=== PATIENT | male | born 2000 | race Caucasian/White ===

== ENCOUNTER 2019-07-26 12:43 | Inpatient (IN) | payer MEDICAID, OTHER ==
[~2019-07-26] VITALS: Ht 175.3 cm; Wt 64.7 kg
--- NOTE | 2019-07-26 13:43 | NUR ---
PT PLACED ON BP CUFF, PULSE OX. IV PLACED, LABS DRAWN. AWAITING CT. CALL LIGHT WITHIN REACH.
[2019-07-26 13:47] LABS: MEAN CORPUSCULAR HEMOGLOBIN 30.9 pg (27.5-34.5); MEAN CORPUSCULAR HGB CONC 33.3 g/dL (33.2-36.2); MEAN CORPUSCULAR VOLUME 92.8 fL (81-97); MEAN PLATELET VOLUME 7.3 fL (7.4-10.4); PLATELET COUNT 238 x10^3/uL (130-400); RED BLOOD COUNT 5.37 x10^6/uL (4.38-5.82); RED CELL DISTRIBUTION WIDTH 14.4 % (9.4-14.8)
[2019-07-26 13:56] LABS: ANION GAP 10 mmol/L (5-15); CALCIUM 10.6 mg/dL (8.5-10.1); CHLORIDE 90 mmol/L (98-107); CREATININE 0.91 mg/dL (0.7-1.3)
[2019-07-26] MEDS ORDERED: KETOROLAC 30 MG/1 ML ONE (14:00)
[2019-07-26] MEDS ORDERED: KETOROLAC 30 MG/1 ML IM ONE (14:00)
[2019-07-26] MEDS ORDERED: CYCLOBENZAPRINE 10 MG TABLET PO ONE (14:00)
[2019-07-26] MEDS ORDERED: CYCLOBENZAPRINE 10 MG TABLET ONE (14:00)
--- NOTE | 2019-07-26 14:10 | NUR ---
PT GIVEN MEDS PER ERP ORDER FOR 10/10 NECK PAIN. CALL LIGHT WITHIN REACH.
[2019-07-26] MEDS ORDERED: SODIUM CHLORIDE 0.9% 1,000ML IVBOLUS ONE (14:30)
[2019-07-26] MEDS ORDERED: KETOROLAC 30 MG/1 ML IVPush ONE (14:30)
--- NOTE | 2019-07-26 14:35 | NUR ---
TASK RN: PT W/ HYPONATREMIA; SZ PRECAUTIONS IN PLACE.
--- NOTE | 2019-07-26 14:45 | NUR ---
NA 124-NS IVF BOLUS INFUSING, SEIZURE PADS IN PLACE, AND PT PLACED ON HEART MONITOR. RECTAL TEMP OBTAINED 101.4. PT AND FATHER UPDATED ON POC. CALL LIGHT WITHIN REACH.
[2019-07-26 14:52] LABS: MD YES
[2019-07-26 14:55] LABS: <PLATELET ESTIMATE> ADEQUATE; BANDS%(MANUAL) 5 % (0-7); LYMPH#(MANUAL) 0.36 x10^3/uL (1-3.4); LYMPHS% (MANUAL) 2 % (22-44); MONOS#(MANUAL) 1.97 x10^3/uL (0.3-2.7); MONOS% (MANUAL) 11 % (2-9); SEG#(MANUAL) 14.68 x10^3/uL (1.8-6.8); SEGS% (MANUAL) 82 % (42-75)
[2019-07-26 14:56] LABS: <PLT MORPHOLOGY> NORMAL PLT MORPH
[2019-07-26] MEDS ORDERED: ACETAMINOPHEN 500 MG TABLET PO ONE (15:00)
[2019-07-26] MEDS ORDERED: AMPICILLIN/SULBACTAM 3 GM in SODIUM CHLORIDE 0.9% 100 ML IV ONE (15:00)
[2019-07-26 15:12] LABS: <RBC MORPHOLOGY> NORMAL
[2019-07-26] MEDS ORDERED: ACETAMINOPHEN 500 MG TABLET ONE (15:19)
--- NOTE | 2019-07-26 15:26 | NUR ---
REPORT FROM CHELSIE VINSON. PT UP TO SIDE OF BED FOR URINAL USE. NAD NOTED AT THIS TIME. RESPIRATIONS EVEN AND UNLABORED ON RA. SIDE RAIL UP, CALL LIGHT IN REACH. FATHER AT BEDSIDE. SZ PAD REMAIN IN PLACE.
[2019-07-26] MEDS ORDERED: LIDOCAINE-MPF 1%, 5ML ONE (16:40)
--- NOTE | 2019-07-26 16:43 | NUR ---
LP UNSUCCESSFUL IN ED. PT EDUCATED ON NEED FOR IMAGING PLACEMENT. NO QUESTIONS AT THIS TIME. RESPIRATIONS EVEN AND UNLABORED ON RA, POSITION OF COMFORT ATTAINED. PT WATCHING TELEVISION.
--- NOTE | 2019-07-26 16:53 | NUR ---
PT TAKEN TO IMAGING FOR LP. NAD NOTED AT THIS TIME, DENIES PAIN.
[2019-07-26 17:04] LABS: MICROSCOPIC NOT IND
[2019-07-26 17:11] LABS: CULTURE INDICATED? NO
--- NOTE | 2019-07-26 17:49 | NUR ---
pt back from radiology. Laying flat on back, NAD noted at this time. Respirations even and unlabored on RA. Side rails up, call light in reach. Pt denies pain at this time. Curtain pulled for privacy.
[2019-07-26 18:38] LABS: GLUCOSE, CSF 66 mg/dL (40-80); TOTAL PROTEIN,CSF 84 mg/dL (15-45)
--- NOTE | 2019-07-26 19:02 | NUR ---
pt laying back in bed, resting with eyes closed. NAD noted at this time. Pt denies pain. Side rails up, call light in reach. Family at bedside.
[2019-07-26] MEDS ORDERED: CEFTRIAXONE PMX 1GM/50ML 50 ML IV ONE (19:30)
--- NOTE | 2019-07-26 19:32 | NUR ---
critical from lab reported to dr gay.
--- NOTE | 2019-07-26 19:52 | NUR ---
Hospitalist at bedside. NAD noted in pt at this time. Denies pain at this time. [employer] at bedside from coffee cart.
[2019-07-26] MEDS ORDERED: SODIUM CHLORIDE FLUSH 10ML SYR IVF PRN (20:00)
[2019-07-26] MEDS ORDERED: POLYETHYLENE GLYCOL 17 GM PACKET PO PRN (20:00)
[2019-07-26] MEDS ORDERED: BISACODYL 10 MG SUPP PR PRN (20:00)
--- NOTE | 2019-07-26 20:10 | NUR ---
Pt laying back in bed watching television. NAD noted at this time. Respirations even and unlabored on RA. Side rails up, call light in reach.
[2019-07-26] MEDS ORDERED: VANCOMYCIN PER PHARMACY MC PRN (20:30)
[2019-07-26 20:45] VITALS: BP 116/76
[2019-07-26] MEDS ORDERED: PHARMACOKINETIC MONITORING MC PRN (21:00)
[2019-07-26] MEDS ORDERED: PHARMACOKINETIC CONSULTATION MC ONE (21:00)
[2019-07-26] MEDS ORDERED: VANCOMYCIN 1,300 MG in SODIUM CHLORIDE 0.9% 250 ML IV SCH (21:30)
[2019-07-26] MEDS: SODIUM CHLORIDE 0.9% 1,000 ML IV SCH (22:04)
[2019-07-26] MEDS: ACYCLOVIR 1,000 MG in SODIUM CHLORIDE 0.9% 250 ML IV SCH (22:05)
[2019-07-26] MEDS: CEFTRIAXONE PMX 2GM/50ML 50 ML IV SCH (23:50)
[2019-07-27 01:23] VITALS: BP 112/65
[2019-07-27] MEDS: METHOCARBAMOL 500 MG TABLET PO PRN ×4 (01:39→21:08)
[2019-07-27] MEDS: ACETAMINOPHEN 325 MG TABLET PO PRN ×2 (01:39→19:34)
[2019-07-27 05:53] LABS: ALBUMIN 2.4 g/dL (3.4-5.0); ANION GAP 7 mmol/L (5-15); CALCIUM 9.3 mg/dL (8.5-10.1); CHLORIDE 100 mmol/L (98-107)
[2019-07-27 05:54] LABS: MEAN CORPUSCULAR HEMOGLOBIN 31.3 pg (27.5-34.5); MEAN CORPUSCULAR HGB CONC 33.7 g/dL (33.2-36.2); MEAN PLATELET VOLUME 7.7 fL (7.4-10.4); PLATELET COUNT 174 x10^3/uL (130-400); RED BLOOD COUNT 4.55 x10^6/uL (4.38-5.82); RED CELL DISTRIBUTION WIDTH 14.6 % (9.4-14.8)
[2019-07-27 06:00] LABS: ALANINE AMINOTRANSFERASE 117 U/L (12-78); ALKALINE PHOSPHATASE 110 U/L (45-117); BILIRUBIN,TOTAL 0.9 mg/dL (0.2-1.0); CREATININE 0.51 mg/dL (0.7-1.3); TOTAL PROTEIN 6.1 g/dL (6.4-8.2)
[2019-07-27] MEDS: ACYCLOVIR 1,000 MG in SODIUM CHLORIDE 0.9% 250 ML IV SCH (06:02)
[2019-07-27] MEDS: ONDANSETRON ODT 4 MG PO PRN ×2 (06:16→09:48)
[2019-07-27 06:17] LABS: BASOPHILS # (AUTO) 0.09 x10^3/uL (0-0.1); BASOPHILS % (AUTO) 1 % (0-1); EOSINOPHILS # (AUTO) 0.02 x10^3/uL (0-0.4); EOSINOPHILS % (AUTO) 0 % (1-7); LYMPHOCYTES % (AUTO) 4 % (22-44); MD SCAN; MONOCYTES # (AUTO) 1.95 x10^3/uL (0.2-0.8); MONOCYTES % (AUTO) 11 % (2-9); NEUTROPHILS # (AUTO) 14.96 x10^3/uL (1.8-6.8); NEUTROPHILS % (AUTO) 85 % (42-75)
[2019-07-27 08:11] VITALS: BP 109/64
[2019-07-27] MEDS: SODIUM CHLORIDE 0.9% 1,000 ML IV SCH ×2 (08:49→17:12)
[2019-07-27] MEDS: SENNA/DOCUSATE TABLET PO SCH (08:51)
[2019-07-27] MEDS: CEFTRIAXONE PMX 2GM/50ML 50 ML IV SCH (11:26)
[2019-07-27] MEDS: VANCOMYCIN PMX 1GM/200ML 200 ML IVPB SCH ×2 (12:27→21:47)
[2019-07-27 13:49] LABS: SODIUM,URINE RANDOM 20 mmol/L
[2019-07-27 15:17] LABS: OSMOLALITY,URINE 352 mOsm/kg (500-850)
[2019-07-27 15:23] VITALS: BP 126/81
[2019-07-27] MEDS: ACYCLOVIR IV SCH (19:56)
[2019-07-27] MEDS: SODIUM CHLORIDE 0.9% IV SCH (19:56)
[2019-07-27 21:15] VITALS: BP 125/70
[2019-07-28] MEDS: CEFTRIAXONE PMX 2GM/50ML 50 ML IV SCH ×3 (00:09→23:37)
[2019-07-28 03:01] VITALS: BP 113/73
[2019-07-28] MEDS: METHOCARBAMOL 500 MG TABLET PO PRN (03:01)
[2019-07-28] MEDS: SODIUM CHLORIDE 0.9% IV SCH ×3 (03:57→19:57)
[2019-07-28] MEDS: ACYCLOVIR IV SCH ×3 (03:57→19:57)
[2019-07-28] MEDS: VANCOMYCIN PMX 1GM/200ML 200 ML IVPB SCH ×4 (04:52→22:05)
[2019-07-28 06:01] LABS: MEAN CORPUSCULAR HEMOGLOBIN 31.5 pg (27.5-34.5); MEAN CORPUSCULAR HGB CONC 33.3 g/dL (33.2-36.2); MEAN CORPUSCULAR VOLUME 94.5 fL (81-97); MEAN PLATELET VOLUME 8.5 fL (7.4-10.4); PLATELET COUNT 167 x10^3/uL (130-400); RED BLOOD COUNT 4.75 x10^6/uL (4.38-5.82); RED CELL DISTRIBUTION WIDTH 14.1 % (9.4-14.8)
[2019-07-28 06:27] LABS: ALBUMIN 1.9 g/dL (3.4-5.0); ANION GAP 6 mmol/L (5-15); CALCIUM 8.7 mg/dL (8.5-10.1); CHLORIDE 91 mmol/L (98-107)
[2019-07-28 06:29] LABS: MD YES
[2019-07-28 06:31] LABS: ALANINE AMINOTRANSFERASE 69 U/L (12-78); ALKALINE PHOSPHATASE 108 U/L (45-117); BILIRUBIN,TOTAL 0.6 mg/dL (0.2-1.0); CREATININE 0.84 mg/dL (0.7-1.3)
[2019-07-28 06:32] LABS: <RBC MORPHOLOGY> NORMAL; BAND#(MANUAL) 2.41 x10^3/uL; BANDS%(MANUAL) 13 % (0-7); LYMPH#(MANUAL) 1.67 x10^3/uL (1-3.4); LYMPHS% (MANUAL) 9 % (22-44); METAMYELOCYTES# (MANUAL) 0.19 x10^3/uL (0-0); METAMYELOCYTES% (MANUAL) 1 % (0-1); MONOS#(MANUAL) 1.67 x10^3/uL (0.3-2.7); MONOS% (MANUAL) 9 % (2-9); SEG#(MANUAL) 12.58 x10^3/uL (1.8-6.8); SEGS% (MANUAL) 68 % (42-75)
[2019-07-28 06:33] LABS: TOXIC GRAN 1+
[2019-07-28 06:34] LABS: <PLATELET ESTIMATE> ADEQUATE; <PLT MORPHOLOGY> NORMAL PLT MORPH
[2019-07-28 06:38] VITALS: BP 119/70
[2019-07-28] MEDS: SENNA/DOCUSATE TABLET PO SCH (08:09)
[2019-07-28] MEDS: POTASSIUM CHLORIDE 20 MEQ TAB.ER.PRT PO SCH ×2 (09:38→16:39)
[2019-07-28] MEDS: HYDROcodone/APAP 5/325 TABLET PO PRN ×2 (09:39→16:39)
[2019-07-28 14:00] VITALS: BP 117/69
[2019-07-28 15:24] LABS: ANION GAP 7 mmol/L (5-15); CALCIUM 8.8 mg/dL (8.5-10.1); CHLORIDE 92 mmol/L (98-107); CREATININE 0.88 mg/dL (0.7-1.3)
[2019-07-28 18:48] VITALS: BP 122/76
[2019-07-28 22:47] LABS: SODIUM,URINE RANDOM 64 mmol/L
[2019-07-28 23:24] LABS: OSMOLALITY,URINE 277 mOsm/kg (500-850)
[2019-07-28 23:55] LABS: ANION GAP 7 mmol/L (5-15); CALCIUM 8.3 mg/dL (8.5-10.1); CHLORIDE 94 mmol/L (98-107); CREATININE 0.77 mg/dL (0.7-1.3)
[2019-07-29 02:09] VITALS: BP 134/70
[2019-07-29] MEDS: ACYCLOVIR IV SCH ×2 (04:14→12:17)
[2019-07-29] MEDS: SODIUM CHLORIDE 0.9% IV SCH ×2 (04:14→12:17)
[2019-07-29] MEDS: HYDROcodone/APAP 5/325 TABLET PO PRN ×3 (04:22→23:20)
[2019-07-29 04:30] VITALS: BP 136/82
[2019-07-29 05:45] LABS: ALBUMIN 2.1 g/dL (3.4-5.0); ANION GAP 7 mmol/L (5-15); CALCIUM 8.9 mg/dL (8.5-10.1); CHLORIDE 92 mmol/L (98-107)
[2019-07-29 05:59] LABS: MEAN CORPUSCULAR HEMOGLOBIN 31.2 pg (27.5-34.5); MEAN CORPUSCULAR HGB CONC 33.6 g/dL (33.2-36.2); MEAN PLATELET VOLUME 8.1 fL (7.4-10.4); PLATELET COUNT 215 x10^3/uL (130-400); RED BLOOD COUNT 4.77 x10^6/uL (4.38-5.82); RED CELL DISTRIBUTION WIDTH 14.1 % (9.4-14.8)
[2019-07-29] MEDS: VANCOMYCIN PMX 1GM/200ML 200 ML IVPB SCH ×2 (06:05→17:41)
[2019-07-29 06:22] LABS: MD YES
[2019-07-29 06:25] LABS: <PLATELET ESTIMATE> ADEQUATE; <PLT MORPHOLOGY> NORMAL PLT MORPH; <RBC MORPHOLOGY> NORMAL; BAND#(MANUAL) 0.37 x10^3/uL; BANDS%(MANUAL) 2 % (0-7); EOS#(MANUAL) 0.18 x10^3/uL (0.0-0.4); EOS% (MANUAL) 1 % (1-7); LYMPH#(MANUAL) 1.47 x10^3/uL (1-3.4); LYMPHS% (MANUAL) 8 % (22-44); METAMYELOCYTES# (MANUAL) 0.18 x10^3/uL (0-0); METAMYELOCYTES% (MANUAL) 1 % (0-1); MONOS#(MANUAL) 1.29 x10^3/uL (0.3-2.7); MONOS% (MANUAL) 7 % (2-9); SEGS% (MANUAL) 81 % (42-75)
[2019-07-29 08:25] VITALS: BP 130/72
[2019-07-29] MEDS: SENNA/DOCUSATE TABLET PO SCH (09:00)
[2019-07-29] MEDS ORDERED: POTASSIUM CHLORIDE 20 MEQ TAB.ER.PRT PO ONE (10:30)
[2019-07-29] MEDS: CEFTRIAXONE PMX 2GM/50ML 50 ML IV SCH ×2 (10:55→23:40)
[2019-07-29] MEDS ORDERED: GADOTERATE 7.5 MMOL/15 ML SYR ONE ×2 (11:23→19:33)
[2019-07-29] MEDS ORDERED: GADOTERATE 7.5 MMOL/15 ML VIAL ONE (13:26)
[2019-07-29] MEDS ORDERED: HEPARIN 5,000 UNITS/ML, 1ML IV ONE (14:30)
[2019-07-29] MEDS: HEPARIN 25,000 UNITS/500ML PMX 500 ML IV PRN (15:54)
[2019-07-29] MEDS: HEPARIN 5,000 UNITS/ML, 1ML IV PRN (23:19)
[2019-07-30] MEDS: HYDROcodone/APAP 5/325 TABLET PO PRN (04:17)
[2019-07-30] MEDS: HEPARIN 5,000 UNITS/ML, 1ML IV PRN (06:03)
[2019-07-30 07:43] LABS: ANION GAP 6 mmol/L (5-15); CALCIUM 8.6 mg/dL (8.5-10.1); CHLORIDE 99 mmol/L (98-107); CREATININE 0.73 mg/dL (0.7-1.3)
[2019-07-30] MEDS: SENNA/DOCUSATE TABLET PO SCH (10:07)
[2019-07-30] MEDS ORDERED: PROPOFOL 10 MG/ML, 20ML ONE (10:20)
[2019-07-30] MEDS ORDERED: SUCCINYLCHOLINE 20 MG/ML, 10ML ONE (10:20)
[2019-07-30] MEDS ORDERED: ROCURONIUM 10MG/ML,5ML ONE (10:20)
[2019-07-30] MEDS ORDERED: ONDANSETRON 2MG/ML, 2ML ONE (10:20)
[2019-07-30] MEDS: CEFTRIAXONE PMX 2GM/50ML 50 ML IV SCH ×2 (12:22→23:04)
[2019-07-30] MEDS ORDERED: MIDAZOLAM 1 MG/ML, 2ML ONE ×2 (16:45→17:34)
[2019-07-30] MEDS ORDERED: FENTANYL PF 100 MCG/2ML ONE ×2 (16:45→20:42)
[2019-07-30] MEDS ORDERED: BACITRACIN OINT 500U/GM, 15 GM ONE (17:31)
[2019-07-30] MEDS ORDERED: FLUORESCEIN SODIUM 500 MG/5 ML ONE (17:31)
[2019-07-30] MEDS ORDERED: LIDOCAINE 1%-EPI 1:100K, 20ML ONE (17:31)
[2019-07-30] MEDS ORDERED: OXYMETAZOLINE NASAL SPRAY 0.05%, 15ML ONE (17:31)
[2019-07-30] MEDS ORDERED: FENTANYL PF 250 MCG/5ML ONE (17:34)
[2019-07-30] MEDS ORDERED: EPINEPHRINE TOPICAL SOLN 1 MG/ML, 30ML ONE (17:46)
[2019-07-30] MEDS ORDERED: SUGAMMADEX 200 MG/2 ML IVPush ONE (20:04)
[2019-07-30] MEDS ORDERED: hydrALAzine 20 MG/ML, 1ML IV PRN (20:30)
[2019-07-30] MEDS ORDERED: PROMETHAZINE 25 MG/ML, 1ML IV PRN (20:30)
[2019-07-30] MEDS ORDERED: MIDAZOLAM 1 MG/ML, 2ML IV PRN (20:30)
[2019-07-30] MEDS ORDERED: DIAZEPAM 5 MG/ML, 2ML IVPush PRN (20:30)
[2019-07-30] MEDS ORDERED: LABETALOL 5MG/ML, 20ML IV PRN (20:30)
[2019-07-30] MEDS ORDERED: ONDANSETRON ODT 8 MG PO PRN (20:30)
[2019-07-30] MEDS ORDERED: EPHEDRINE 50 MG/ML, 1ML IVPush PRN (20:30)
[2019-07-30] MEDS ORDERED: ONDANSETRON 2MG/ML, 2ML IV PRN (20:30)
[2019-07-30] MEDS ORDERED: OXYMETAZOLINE NASAL SPRAY 0.05%,30ML NAS SCH (20:30)
[2019-07-30] MEDS ORDERED: HYDROmorphone 2 MG/ML, 1ML IVPush PRN (20:30)
[2019-07-30] MEDS ORDERED: HALOPERIDOL 5 MG/ML IV PRN (20:30)
[2019-07-30] MEDS ORDERED: ACETAMINOPHEN 325 MG TABLET PO PRN (20:30)
[2019-07-30] MEDS ORDERED: PROMETHAZINE 12.5 MG SUPP PR PRN (20:30)
[2019-07-30] MEDS ORDERED: OXYcodone 5 MG/5 ML ORAL.SOL UDC PO PRN (20:30)
[2019-07-30] MEDS ORDERED: ALBUTEROL SULFATE 2.5 MG/3 ML NPPB PRN (20:30)
[2019-07-30] MEDS ORDERED: MEPERIDINE/PF 25MG/ML,1ML IVPush PRN (20:30)
[2019-07-30] MEDS ORDERED: OXYcodone 5 MG/5 ML ORAL.SOL UDC ONE (20:42)
[2019-07-30] MEDS: FENTANYL PF 100 MCG/2ML IV PRN ×3 (20:45→20:59)
[2019-07-30] MEDS: SODIUM CHLORIDE NASAL SPRAY 45ML BOTTLE NAS SCH (21:00)
[2019-07-31] MEDS: HYDROcodone/APAP 5/325 TABLET PO PRN ×4 (02:10→22:47)
[2019-07-31 03:42] LABS: MEAN CORPUSCULAR HEMOGLOBIN 30.7 pg (27.5-34.5); MEAN CORPUSCULAR HGB CONC 33.3 g/dL (33.2-36.2); MEAN CORPUSCULAR VOLUME 92.1 fL (81-97); MEAN PLATELET VOLUME 6.5 fL (7.4-10.4); PLATELET COUNT 282 x10^3/uL (130-400); RED BLOOD COUNT 4.16 x10^6/uL (4.38-5.82); RED CELL DISTRIBUTION WIDTH 14.2 % (9.4-14.8)
[2019-07-31 03:48] LABS: MD YES
[2019-07-31 03:53] LABS: ANION GAP 7 mmol/L (5-15); CALCIUM 8.5 mg/dL (8.5-10.1); CHLORIDE 97 mmol/L (98-107); CREATININE 0.89 mg/dL (0.7-1.3)
[2019-07-31 03:57] LABS: <PLATELET ESTIMATE> ADEQUATE; <PLT MORPHOLOGY> NORMAL PLT MORPH; BANDS%(MANUAL) 3 % (0-7); LYMPH#(MANUAL) 1.33 x10^3/uL (1-3.4); LYMPHS% (MANUAL) 10 % (22-44); METAMYELOCYTES# (MANUAL) 0.27 x10^3/uL (0-0); METAMYELOCYTES% (MANUAL) 2 % (0-1); MONOS% (MANUAL) 12 % (2-9); MYELOCYTES# (MANUAL) 0.27 x10^3/uL (0-0); MYELOCYTES% (MANUAL) 2 % (0-0); POLYCHROMASIA 1+; SEG#(MANUAL) 9.44 x10^3/uL (1.8-6.8); SEGS% (MANUAL) 71 % (42-75)
[2019-07-31 03:58] LABS: TOXIC GRAN 1+
[2019-07-31] MEDS: HEPARIN 5,000 UNITS/ML, 1ML IV PRN ×3 (04:07→21:17)
[2019-07-31] MEDS: SODIUM CHLORIDE NASAL SPRAY 45ML BOTTLE NAS SCH ×4 (06:00→21:17)
[2019-07-31] MEDS: SENNA/DOCUSATE TABLET PO SCH (09:00)
[2019-07-31] MEDS ORDERED: OXYMETAZOLINE NASAL SPRAY 0.05%,30ML NAS PRN (10:00)
[2019-07-31] MEDS ORDERED: metroNIDAZOLE 500 MG TABLET PO SCH (13:00)
[2019-07-31] MEDS: CEFTRIAXONE PMX 2GM/50ML 50 ML IV SCH (13:01)
[2019-07-31] MEDS: HEPARIN 25,000 UNITS/500ML PMX 500 ML IV PRN (13:30)
[2019-07-31] MEDS: metroNIDAZOLE 500 MG TABLET PO SCH ×2 (14:50→21:17)
[2019-07-31 15:42] LABS: CHLORIDE,URINE RANDOM 42 mmol/L; POTASSIUM,URINE RANDOM 7 mmol/L; SODIUM,URINE RANDOM 54 mmol/L
[2019-07-31 16:31] LABS: OSMOLALITY,URINE 156 mOsm/kg (500-850)
[2019-08-01] MEDS: CEFTRIAXONE PMX 2GM/50ML 50 ML IV SCH ×2 (00:25→13:19)
[2019-08-01] MEDS: HYDROcodone/APAP 5/325 TABLET PO PRN ×5 (02:34→22:54)
[2019-08-01 03:27] LABS: MEAN CORPUSCULAR HEMOGLOBIN 31.2 pg (27.5-34.5); MEAN CORPUSCULAR HGB CONC 33.1 g/dL (33.2-36.2); MEAN CORPUSCULAR VOLUME 94.4 fL (81-97); MEAN PLATELET VOLUME 6.8 fL (7.4-10.4); PLATELET COUNT 354 x10^3/uL (130-400); RED BLOOD COUNT 4.57 x10^6/uL (4.38-5.82); RED CELL DISTRIBUTION WIDTH 14.6 % (9.4-14.8)
[2019-08-01 03:35] LABS: ANION GAP 6 mmol/L (5-15); CALCIUM 8.5 mg/dL (8.5-10.1); CHLORIDE 101 mmol/L (98-107); CREATININE 0.93 mg/dL (0.7-1.3)
[2019-08-01 04:01] LABS: MD YES
[2019-08-01 04:16] LABS: BAND#(MANUAL) 0.33 x10^3/uL; BANDS%(MANUAL) 3 % (0-7); EOS#(MANUAL) 0.11 x10^3/uL (0.0-0.4); EOS% (MANUAL) 1 % (1-7); LYMPH#(MANUAL) 1.42 x10^3/uL (1-3.4); LYMPHS% (MANUAL) 13 % (22-44); METAMYELOCYTES# (MANUAL) 0.11 x10^3/uL (0-0); METAMYELOCYTES% (MANUAL) 1 % (0-1); MONOS#(MANUAL) 1.09 x10^3/uL (0.3-2.7); MONOS% (MANUAL) 10 % (2-9); MYELOCYTES# (MANUAL) 0.33 x10^3/uL (0-0); MYELOCYTES% (MANUAL) 3 % (0-0); REACTIVE LYMPHS # (MANUAL) 0.33 x10^3/uL (0-0); REACTIVE LYMPHS % (MANUAL) 3 % (0-0); SEG#(MANUAL) 7.19 x10^3/uL (1.8-6.8); SEGS% (MANUAL) 66 % (42-75)
[2019-08-01 04:17] LABS: <PLATELET ESTIMATE> ADEQUATE; <PLT MORPHOLOGY> NORMAL PLT MORPH; POLYCHROMASIA 1+; TOXIC GRAN 1+
[2019-08-01 05:00] VITALS: BP 115/77
[2019-08-01] MEDS: SODIUM CHLORIDE NASAL SPRAY 45ML BOTTLE NAS SCH ×4 (05:20→20:49)
[2019-08-01] MEDS: metroNIDAZOLE 500 MG TABLET PO SCH ×3 (05:20→20:49)
[2019-08-01] MEDS: HEPARIN 5,000 UNITS/ML, 1ML IV PRN (05:22)
[2019-08-01 07:56] LABS: INTERNATIONAL NORMALIZED RATIO 0.99 (0.93-1.1); PROTHROMBIN TIME 10.4 Seconds (9.6-11.5)
[2019-08-01] MEDS: SENNA/DOCUSATE TABLET PO SCH (09:00)
[2019-08-01] MEDS: ENOXAPARIN 60 MG/0.6 ML SQ SCH ×2 (10:04→20:51)
[2019-08-01] MEDS: WARFARIN 5 MG TABLET PO-COUM SCH (17:00)
[2019-08-01] MEDS: ACETAMINOPHEN 325 MG TABLET PO PRN (20:51)
[2019-08-02] MEDS: CEFTRIAXONE PMX 2GM/50ML 50 ML IV SCH ×2 (01:14→12:52)
[2019-08-02] MEDS: HYDROcodone/APAP 5/325 TABLET PO PRN ×4 (03:24→18:10)
[2019-08-02 04:45] LABS: INTERNATIONAL NORMALIZED RATIO 1.07 (0.93-1.1); PROTHROMBIN TIME 11.2 Seconds (9.6-11.5)
[2019-08-02 05:00] VITALS: BP 115/71
[2019-08-02] MEDS: SODIUM CHLORIDE NASAL SPRAY 45ML BOTTLE NAS SCH ×4 (06:07→21:03)
[2019-08-02] MEDS: metroNIDAZOLE 500 MG TABLET PO SCH ×3 (06:07→21:02)
[2019-08-02] MEDS: ENOXAPARIN 60 MG/0.6 ML SQ SCH ×2 (08:53→21:03)
[2019-08-02] MEDS: METHOCARBAMOL 500 MG TABLET PO PRN ×3 (08:53→21:07)
[2019-08-02] MEDS: SENNA/DOCUSATE TABLET PO SCH (08:55)
[2019-08-02] MEDS ORDERED: GADOTERATE 7.5 MMOL/15 ML VIAL ONE (11:38)
[2019-08-02] MEDS: OXYMETAZOLINE NASAL SPRAY 0.05%,30ML NAS PRN (13:06)
[2019-08-02] MEDS: WARFARIN 5 MG TABLET PO-COUM SCH (18:09)
[2019-08-03] MEDS: CEFTRIAXONE PMX 2GM/50ML 50 ML IV SCH ×2 (01:08→12:44)
[2019-08-03] MEDS: HYDROcodone/APAP 5/325 TABLET PO PRN ×2 (01:16→20:07)
[2019-08-03 04:27] LABS: MEAN CORPUSCULAR HEMOGLOBIN 31.2 pg (27.5-34.5); MEAN CORPUSCULAR HGB CONC 33.1 g/dL (33.2-36.2); MEAN CORPUSCULAR VOLUME 94.2 fL (81-97); MEAN PLATELET VOLUME 6.6 fL (7.4-10.4); PLATELET COUNT 533 x10^3/uL (130-400); RED BLOOD COUNT 4.59 x10^6/uL (4.38-5.82); RED CELL DISTRIBUTION WIDTH 14.9 % (9.4-14.8)
[2019-08-03 04:30] VITALS: BP 126/81
[2019-08-03] MEDS: METHOCARBAMOL 500 MG TABLET PO PRN ×2 (04:32→09:58)
[2019-08-03] MEDS: metroNIDAZOLE 500 MG TABLET PO SCH ×3 (04:33→20:07)
[2019-08-03 04:37] LABS: INTERNATIONAL NORMALIZED RATIO 1.29 (0.93-1.1); PROTHROMBIN TIME 13.4 Seconds (9.6-11.5)
[2019-08-03 04:42] LABS: ALANINE AMINOTRANSFERASE 38 U/L (12-78); ALBUMIN 2.7 g/dL (3.4-5.0); ANION GAP 8 mmol/L (5-15); CALCIUM 9.1 mg/dL (8.5-10.1); CHLORIDE 100 mmol/L (98-107); CREATININE 0.82 mg/dL (0.7-1.3)
[2019-08-03 04:44] LABS: ALKALINE PHOSPHATASE 95 U/L (45-117); BILIRUBIN,TOTAL 0.2 mg/dL (0.2-1.0); TOTAL PROTEIN 7.9 g/dL (6.4-8.2)
[2019-08-03 04:50] LABS: MD YES
[2019-08-03 04:51] LABS: LYMPH#(MANUAL) 2.88 x10^3/uL (1-3.4); LYMPHS% (MANUAL) 22 % (22-44); MONOS#(MANUAL) 1.57 x10^3/uL (0.3-2.7); MONOS% (MANUAL) 12 % (2-9); MYELOCYTES# (MANUAL) 0.26 x10^3/uL (0-0); MYELOCYTES% (MANUAL) 2 % (0-0); SEG#(MANUAL) 8.38 x10^3/uL (1.8-6.8); SEGS% (MANUAL) 64 % (42-75)
[2019-08-03 04:52] LABS: <PLATELET ESTIMATE> INCREASED; <PLT MORPHOLOGY> NORMAL PLT MORPH; ANISOCYTOSIS 1+; TOXIC GRAN 1+
[2019-08-03 05:52] LABS: CHLORIDE,URINE RANDOM 64 mmol/L; POTASSIUM,URINE RANDOM 18 mmol/L; SODIUM,URINE RANDOM 65 mmol/L
[2019-08-03 06:22] LABS: OSMOLALITY,URINE 286 mOsm/kg (500-850)
[2019-08-03] MEDS: SODIUM CHLORIDE NASAL SPRAY 45ML BOTTLE NAS SCH ×4 (06:28→20:07)
[2019-08-03] MEDS: OXYMETAZOLINE NASAL SPRAY 0.05%,30ML NAS PRN (08:34)
[2019-08-03] MEDS: ENOXAPARIN 60 MG/0.6 ML SQ SCH ×2 (08:35→20:07)
[2019-08-03] MEDS: SENNA/DOCUSATE TABLET PO SCH (08:35)
[2019-08-03] MEDS: ACETAMINOPHEN 325 MG TABLET PO PRN (12:57)
[2019-08-03 13:30] VITALS: BP 131/91
[2019-08-03] MEDS: WARFARIN 5 MG TABLET PO-COUM SCH (17:28)
[2019-08-03 19:19] VITALS: BP 130/74
[2019-08-04 00:56] VITALS: BP 117/67
[2019-08-04] MEDS: CEFTRIAXONE PMX 2GM/50ML 50 ML IV SCH ×2 (01:02→13:08)
[2019-08-04] MEDS: metroNIDAZOLE 500 MG TABLET PO SCH ×3 (04:55→21:20)
[2019-08-04] MEDS: SODIUM CHLORIDE NASAL SPRAY 45ML BOTTLE NAS SCH ×4 (04:55→21:20)
[2019-08-04 05:24] LABS: INTERNATIONAL NORMALIZED RATIO 2.06 (0.93-1.1)
[2019-08-04 07:25] VITALS: BP 119/75
[2019-08-04] MEDS: SENNA/DOCUSATE TABLET PO SCH (08:28)
[2019-08-04] MEDS: ENOXAPARIN 60 MG/0.6 ML SQ SCH ×2 (08:40→21:20)
[2019-08-04] MEDS: WARFARIN 5 MG TABLET PO-COUM SCH (17:09)
[2019-08-04] MEDS: HYDROcodone/APAP 5/325 TABLET PO PRN (17:21)
[2019-08-04 20:15] VITALS: BP 119/73
[2019-08-05] MEDS: CEFTRIAXONE PMX 2GM/50ML 50 ML IV SCH ×2 (01:04→13:24)
[2019-08-05 03:00] VITALS: BP 113/77
[2019-08-05] MEDS: metroNIDAZOLE 500 MG TABLET PO SCH ×3 (05:05→20:03)
[2019-08-05] MEDS: SODIUM CHLORIDE NASAL SPRAY 45ML BOTTLE NAS SCH ×4 (05:10→20:03)
[2019-08-05 06:03] LABS: ANION GAP 7 mmol/L (5-15); CALCIUM 9.2 mg/dL (8.5-10.1); CHLORIDE 102 mmol/L (98-107); CREATININE 0.91 mg/dL (0.7-1.3); INTERNATIONAL NORMALIZED RATIO 3.19 (0.93-1.1)
[2019-08-05 07:09] VITALS: BP 111/70
[2019-08-05] MEDS: ENOXAPARIN 60 MG/0.6 ML SQ SCH (08:13)
[2019-08-05] MEDS: HYDROcodone/APAP 5/325 TABLET PO PRN ×2 (08:20→16:16)
[2019-08-05] MEDS: SENNA/DOCUSATE TABLET PO SCH (08:44)
[2019-08-05 12:31] VITALS: BP 129/79
[2019-08-05 20:07] VITALS: BP 112/69
[2019-08-06] MEDS: CEFTRIAXONE PMX 2GM/50ML 50 ML IV SCH ×2 (00:57→13:12)
[2019-08-06] MEDS: HYDROcodone/APAP 5/325 TABLET PO PRN ×4 (02:18→21:01)
[2019-08-06 05:09] LABS: BASOPHILS # (AUTO) 0.06 x10^3/uL (0-0.1); BASOPHILS % (AUTO) 1 % (0-1); EOSINOPHILS # (AUTO) 0.22 x10^3/uL (0-0.4); EOSINOPHILS % (AUTO) 3 % (1-7); LYMPHOCYTES # (AUTO) 1.09 x10^3/uL (1-3.4); LYMPHOCYTES % (AUTO) 14 % (22-44); MD NO; MEAN CORPUSCULAR HGB CONC 33.1 g/dL (33.2-36.2); MEAN CORPUSCULAR VOLUME 93.6 fL (81-97); MEAN PLATELET VOLUME 6.2 fL (7.4-10.4); MONOCYTES # (AUTO) 0.79 x10^3/uL (0.2-0.8); MONOCYTES % (AUTO) 10 % (2-9); NEUTROPHILS # (AUTO) 5.61 x10^3/uL (1.8-6.8); NEUTROPHILS % (AUTO) 72 % (42-75); PLATELET COUNT 530 x10^3/uL (130-400); RED CELL DISTRIBUTION WIDTH 14.5 % (9.4-14.8)
[2019-08-06] MEDS: metroNIDAZOLE 500 MG TABLET PO SCH ×3 (05:14→21:00)
[2019-08-06 05:20] LABS: ANION GAP 7 mmol/L (5-15); CALCIUM 8.9 mg/dL (8.5-10.1); CHLORIDE 106 mmol/L (98-107); CREATININE 0.77 mg/dL (0.7-1.3); INTERNATIONAL NORMALIZED RATIO 2.93 (0.93-1.1); PROTHROMBIN TIME 29.5 Seconds (9.6-11.5)
[2019-08-06] MEDS: SODIUM CHLORIDE NASAL SPRAY 45ML BOTTLE NAS SCH ×4 (06:00→21:00)
[2019-08-06 07:38] VITALS: BP 118/72
[2019-08-06] MEDS: SENNA/DOCUSATE TABLET PO SCH (08:47)
[2019-08-06 13:44] VITALS: BP 109/73
[2019-08-06] MEDS ORDERED: WARFARIN 3 MG TABLET PO-COUM ONE (18:00)
[2019-08-06 19:31] VITALS: BP 119/72
[2019-08-07] MEDS: CEFTRIAXONE PMX 2GM/50ML 50 ML IV SCH ×2 (00:54→13:12)
[2019-08-07 01:15] VITALS: BP 113/63
[2019-08-07 05:07] LABS: INTERNATIONAL NORMALIZED RATIO 2.97 (0.93-1.1); PROTHROMBIN TIME 29.9 Seconds (9.6-11.5)
[2019-08-07] MEDS: metroNIDAZOLE 500 MG TABLET PO SCH ×3 (05:20→20:49)
[2019-08-07] MEDS: SODIUM CHLORIDE NASAL SPRAY 45ML BOTTLE NAS SCH ×4 (05:20→21:00)
[2019-08-07] MEDS: HYDROcodone/APAP 5/325 TABLET PO PRN ×2 (05:20→11:52)
[2019-08-07 07:17] VITALS: BP 114/72
[2019-08-07] MEDS: SENNA/DOCUSATE TABLET PO SCH (09:00)
[2019-08-07 13:39] VITALS: BP 120/77
[2019-08-07] MEDS ORDERED: WARFARIN 2.5 MG TABLET PO-COUM SCH (18:00)
[2019-08-07 19:18] VITALS: BP 119/74
[2019-08-08] MEDS: CEFTRIAXONE PMX 2GM/50ML 50 ML IV SCH ×2 (00:37→13:08)
[2019-08-08 01:24] VITALS: BP 117/72
[2019-08-08 04:59] LABS: LYMPHOCYTES # (AUTO) 1.24 x10^3/uL (1-3.4); LYMPHOCYTES % (AUTO) 25 % (22-44); MD NO; NEUTROPHILS % (AUTO) 58 % (42-75)
[2019-08-08 05:03] LABS: INTERNATIONAL NORMALIZED RATIO 2.76 (0.93-1.1); PROTHROMBIN TIME 27.9 Seconds (9.6-11.5)
[2019-08-08 05:05] LABS: CHLORIDE 108 mmol/L (98-107)
[2019-08-08 05:12] LABS: ALBUMIN 2.7 g/dL (3.4-5.0); ANION GAP 7 mmol/L (5-15); CALCIUM 8.8 mg/dL (8.5-10.1); CREATININE 0.82 mg/dL (0.7-1.3)
[2019-08-08] MEDS: SODIUM CHLORIDE NASAL SPRAY 45ML BOTTLE NAS SCH ×4 (05:30→20:28)
[2019-08-08] MEDS: metroNIDAZOLE 500 MG TABLET PO SCH ×3 (05:30→20:28)
[2019-08-08 05:37] LABS: BASOPHILS # (AUTO) 0.06 x10^3/uL (0-0.1); BASOPHILS % (AUTO) 1 % (0-1); EOSINOPHILS # (AUTO) 0.14 x10^3/uL (0-0.4); EOSINOPHILS % (AUTO) 3 % (1-7); MEAN CORPUSCULAR HEMOGLOBIN 30.6 pg (27.5-34.5); MEAN CORPUSCULAR HGB CONC 33.1 g/dL (33.2-36.2); MEAN CORPUSCULAR VOLUME 92.4 fL (81-97); MEAN PLATELET VOLUME 6.5 fL (7.4-10.4); MONOCYTES # (AUTO) 0.67 x10^3/uL (0.2-0.8); MONOCYTES % (AUTO) 13 % (2-9); NEUTROPHILS # (AUTO) 2.94 x10^3/uL (1.8-6.8); PLATELET COUNT 516 x10^3/uL (130-400); RED BLOOD COUNT 3.39 x10^6/uL (4.38-5.82); RED CELL DISTRIBUTION WIDTH 14.2 % (9.4-14.8)
[2019-08-08] MEDS: SENNA/DOCUSATE TABLET PO SCH (07:03)
[2019-08-08 07:24] VITALS: BP 116/76
[2019-08-08 12:19] VITALS: BP 123/67
[2019-08-08] MEDS ORDERED: WARFARIN 2.5 MG TABLET PO-COUM SCH (18:00)
[2019-08-08 19:24] VITALS: BP 117/85
[2019-08-09 01:14] VITALS: BP 112/69
[2019-08-09] MEDS: CEFTRIAXONE PMX 2GM/50ML 50 ML IV SCH ×2 (01:31→13:05)
[2019-08-09] MEDS: SODIUM CHLORIDE NASAL SPRAY 45ML BOTTLE NAS SCH ×4 (05:09→20:25)
[2019-08-09] MEDS: metroNIDAZOLE 500 MG TABLET PO SCH ×3 (05:09→20:25)
[2019-08-09 05:26] LABS: BASOPHILS % (AUTO) 2 % (0-1); EOSINOPHILS # (AUTO) 0.14 x10^3/uL (0-0.4); EOSINOPHILS % (AUTO) 4 % (1-7); LYMPHOCYTES # (AUTO) 1.23 x10^3/uL (1-3.4); LYMPHOCYTES % (AUTO) 31 % (22-44); MD NO; MEAN CORPUSCULAR HEMOGLOBIN 31.1 pg (27.5-34.5); MEAN CORPUSCULAR HGB CONC 33.4 g/dL (33.2-36.2); MEAN CORPUSCULAR VOLUME 93.1 fL (81-97); MEAN PLATELET VOLUME 6.5 fL (7.4-10.4); MONOCYTES # (AUTO) 0.56 x10^3/uL (0.2-0.8); MONOCYTES % (AUTO) 14 % (2-9); NEUTROPHILS # (AUTO) 1.99 x10^3/uL (1.8-6.8); NEUTROPHILS % (AUTO) 50 % (42-75); PLATELET COUNT 576 x10^3/uL (130-400); RED BLOOD COUNT 3.39 x10^6/uL (4.38-5.82); RED CELL DISTRIBUTION WIDTH 14.3 % (9.4-14.8)
[2019-08-09 05:28] LABS: INTERNATIONAL NORMALIZED RATIO 2.68 (0.93-1.1); PROTHROMBIN TIME 27.1 Seconds (9.6-11.5)
[2019-08-09 05:30] LABS: ALBUMIN 2.9 g/dL (3.4-5.0); ANION GAP 7 mmol/L (5-15); CALCIUM 8.8 mg/dL (8.5-10.1); CHLORIDE 105 mmol/L (98-107); CREATININE 0.87 mg/dL (0.7-1.3)
[2019-08-09 07:25] VITALS: BP 114/76
[2019-08-09] MEDS: SENNA/DOCUSATE TABLET PO SCH (09:00)
[2019-08-09 14:20] VITALS: BP 118/74
[2019-08-09] MEDS ORDERED: WARFARIN 2.5 MG TABLET PO-COUM SCH (18:00)
[2019-08-09 20:40] VITALS: BP 120/79
[2019-08-10 00:33] VITALS: BP 105/66
[2019-08-10] MEDS: CEFTRIAXONE PMX 2GM/50ML 50 ML IV SCH ×2 (00:33→12:44)
[2019-08-10 03:48] VITALS: BP 112/72
[2019-08-10 04:06] VITALS: BP 123/79
[2019-08-10] MEDS: SODIUM CHLORIDE NASAL SPRAY 45ML BOTTLE NAS SCH ×4 (05:03→20:55)
[2019-08-10] MEDS: metroNIDAZOLE 500 MG TABLET PO SCH ×3 (05:03→20:48)
[2019-08-10 06:22] LABS: INTERNATIONAL NORMALIZED RATIO 2.3 (0.93-1.1); PROTHROMBIN TIME 23.4 Seconds (9.6-11.5)
[2019-08-10 08:13] VITALS: BP 123/83
[2019-08-10] MEDS: SENNA/DOCUSATE TABLET PO SCH (09:02)
[2019-08-10 12:41] VITALS: BP 113/76
[2019-08-10] MEDS ORDERED: WARFARIN 3 MG TABLET PO-COUM ONE (18:00)
[2019-08-10 21:17] VITALS: BP 119/79
[2019-08-11] MEDS: CEFTRIAXONE PMX 2GM/50ML 50 ML IV SCH ×2 (00:54→12:44)
[2019-08-11 01:01] VITALS: BP 105/64
[2019-08-11 04:51] LABS: INTERNATIONAL NORMALIZED RATIO 2.1 (0.93-1.1); PROTHROMBIN TIME 21.4 Seconds (9.6-11.5)
[2019-08-11] MEDS: metroNIDAZOLE 500 MG TABLET PO SCH ×2 (04:52→12:44)
[2019-08-11] MEDS: SODIUM CHLORIDE NASAL SPRAY 45ML BOTTLE NAS SCH ×4 (06:00→21:13)
[2019-08-11 06:51] VITALS: BP 110/67
[2019-08-11] MEDS: SENNA/DOCUSATE TABLET PO SCH (08:25)
[2019-08-11 13:28] VITALS: BP 126/79
[2019-08-11] MEDS ORDERED: WARFARIN 2 MG TABLET PO-COUM ONE (18:00)
[2019-08-11 20:55] VITALS: BP 122/81
[2019-08-12] MEDS: CEFTRIAXONE PMX 2GM/50ML 50 ML IV SCH ×2 (01:03→14:19)
[2019-08-12 01:08] VITALS: BP 117/69
[2019-08-12 05:40] LABS: INTERNATIONAL NORMALIZED RATIO 2.27 (0.93-1.1); PROTHROMBIN TIME 23.1 Seconds (9.6-11.5)
[2019-08-12] MEDS: SODIUM CHLORIDE NASAL SPRAY 45ML BOTTLE NAS SCH ×4 (06:05→21:00)
[2019-08-12 07:09] VITALS: BP 132/72
[2019-08-12] MEDS: SENNA/DOCUSATE TABLET PO SCH (09:00)
[2019-08-12 12:10] VITALS: BP 124/85
[2019-08-12] MEDS ORDERED: WARFARIN 2 MG TABLET PO-COUM ONE (18:00)
[2019-08-12 19:22] VITALS: BP 122/81
[2019-08-12] MEDS: HYDROcodone/APAP 5/325 TABLET PO PRN (19:51)
[2019-08-12] MEDS: ACETAMINOPHEN 325 MG TABLET PO PRN (21:18)
[2019-08-13 00:49] VITALS: BP 109/67
[2019-08-13] MEDS: CEFTRIAXONE PMX 2GM/50ML 50 ML IV SCH ×2 (01:06→13:12)
[2019-08-13] MEDS: HYDROcodone/APAP 5/325 TABLET PO PRN ×3 (01:12→17:12)
[2019-08-13] MEDS: SODIUM CHLORIDE NASAL SPRAY 45ML BOTTLE NAS SCH ×4 (05:09→21:00)
[2019-08-13 05:44] LABS: INTERNATIONAL NORMALIZED RATIO 2.37 (0.93-1.1); PROTHROMBIN TIME 24.1 Seconds (9.6-11.5)
[2019-08-13 08:35] VITALS: BP 129/91
[2019-08-13 09:45] VITALS: BP 109/72
[2019-08-13] MEDS: SENNA/DOCUSATE TABLET PO SCH (09:53)
[2019-08-13] MEDS: ACETAMINOPHEN 325 MG TABLET PO PRN (12:31)
[2019-08-13 13:06] VITALS: BP 127/79
[2019-08-13] MEDS ORDERED: WARFARIN 2 MG TABLET PO-COUM ONE (18:00)
[2019-08-13 19:51] VITALS: BP 125/85
[2019-08-14] MEDS: CEFTRIAXONE PMX 2GM/50ML 50 ML IV SCH ×2 (00:27→13:10)
[2019-08-14 00:38] VITALS: BP 116/75
[2019-08-14] MEDS: SODIUM CHLORIDE NASAL SPRAY 45ML BOTTLE NAS SCH ×4 (05:23→21:00)
[2019-08-14 06:07] LABS: INTERNATIONAL NORMALIZED RATIO 2.67 (0.93-1.1)
[2019-08-14 08:23] VITALS: BP 120/76
[2019-08-14] MEDS: SENNA/DOCUSATE TABLET PO SCH (09:00)
[2019-08-14 14:32] VITALS: BP 122/85
[2019-08-14] MEDS ORDERED: WARFARIN 3 MG TABLET PO-COUM ONE (18:00)
[2019-08-14 20:10] VITALS: BP 114/79
[2019-08-15] MEDS: CEFTRIAXONE PMX 2GM/50ML 50 ML IV SCH ×2 (00:54→14:44)
[2019-08-15 01:05] VITALS: BP 112/67
[2019-08-15] MEDS: SODIUM CHLORIDE NASAL SPRAY 45ML BOTTLE NAS SCH ×4 (04:44→20:31)
[2019-08-15 06:44] LABS: PROTHROMBIN TIME 20.4 Seconds (9.6-11.5)
[2019-08-15 07:20] VITALS: BP 110/77
[2019-08-15] MEDS: SENNA/DOCUSATE TABLET PO SCH (08:41)
[2019-08-15 16:14] VITALS: BP 113/80
[2019-08-15] MEDS ORDERED: WARFARIN 3 MG TABLET PO-COUM ONE (18:00)
[2019-08-15 19:31] VITALS: BP 115/76
[2019-08-16] MEDS: CEFTRIAXONE PMX 2GM/50ML 50 ML IV SCH ×2 (01:06→13:16)
[2019-08-16 01:37] VITALS: BP 96/59
[2019-08-16] MEDS: SODIUM CHLORIDE NASAL SPRAY 45ML BOTTLE NAS SCH ×4 (05:26→21:00)
[2019-08-16 05:32] LABS: INTERNATIONAL NORMALIZED RATIO 1.69 (0.93-1.1); PROTHROMBIN TIME 17.4 Seconds (9.6-11.5)
[2019-08-16 09:00] VITALS: BP 122/77
[2019-08-16] MEDS: SENNA/DOCUSATE TABLET PO SCH (09:00)
[2019-08-16 15:20] VITALS: BP 122/60
[2019-08-16] MEDS ORDERED: WARFARIN 5 MG TABLET PO-COUM ONE (18:00)
[2019-08-16 19:52] VITALS: BP 126/65
[2019-08-17] MEDS: CEFTRIAXONE PMX 2GM/50ML 50 ML IV SCH ×2 (00:37→12:50)
[2019-08-17 01:49] VITALS: BP 119/62
[2019-08-17 05:37] LABS: HCT (SEDRATE) 35.3 % (39.2-51.8)
[2019-08-17 05:46] LABS: INTERNATIONAL NORMALIZED RATIO 1.45 (0.93-1.1)
[2019-08-17 05:48] LABS: MEAN CORPUSCULAR HEMOGLOBIN 30.8 pg (27.5-34.5); MEAN CORPUSCULAR HGB CONC 33.7 g/dL (33.2-36.2); MEAN CORPUSCULAR VOLUME 91.4 fL (81-97); MEAN PLATELET VOLUME 7.3 fL (7.4-10.4); PLATELET COUNT 337 x10^3/uL (130-400); RED BLOOD COUNT 3.84 x10^6/uL (4.38-5.82)
[2019-08-17 05:50] LABS: ALANINE AMINOTRANSFERASE 18 U/L (12-78); ALBUMIN 3.3 g/dL (3.4-5.0); ANION GAP 6 mmol/L (5-15); C-REACTIVE PROTEIN, QUANT 0.07 mg/dL (0.02-0.49); CALCIUM 8.7 mg/dL (8.5-10.1); CHLORIDE 110 mmol/L (98-107); CREATININE 0.74 mg/dL (0.7-1.3)
[2019-08-17 05:52] LABS: ALKALINE PHOSPHATASE 77 U/L (45-117); BILIRUBIN,TOTAL 0.3 mg/dL (0.2-1.0); TOTAL PROTEIN 7.4 g/dL (6.4-8.2)
[2019-08-17] MEDS: SODIUM CHLORIDE NASAL SPRAY 45ML BOTTLE NAS SCH ×4 (05:54→20:46)
[2019-08-17 07:03] VITALS: BP 114/71
[2019-08-17 07:13] LABS: BASOPHILS # (AUTO) 0.03 x10^3/uL (0-0.1); BASOPHILS % (AUTO) 1 % (0-1); EOSINOPHILS # (AUTO) 0.26 x10^3/uL (0-0.4); EOSINOPHILS % (AUTO) 9 % (1-7); LYMPHOCYTES # (AUTO) 0.93 x10^3/uL (1-3.4); LYMPHOCYTES % (AUTO) 34 % (22-44); MD SCAN; MONOCYTES # (AUTO) 0.38 x10^3/uL (0.2-0.8); MONOCYTES % (AUTO) 14 % (2-9); NEUTROPHILS # (AUTO) 1.12 x10^3/uL (1.8-6.8); NEUTROPHILS % (AUTO) 41 % (42-75)
[2019-08-17] MEDS: SENNA/DOCUSATE TABLET PO SCH (09:00)
[2019-08-17 12:27] VITALS: BP 110/79
[2019-08-17 14:08] LABS: BASOPHILS # (AUTO) 0.03 x10^3/uL (0-0.1); BASOPHILS % (AUTO) 1 % (0-1); EOSINOPHILS # (AUTO) 0.28 x10^3/uL (0-0.4); EOSINOPHILS % (AUTO) 8 % (1-7); LYMPHOCYTES # (AUTO) 1.15 x10^3/uL (1-3.4); LYMPHOCYTES % (AUTO) 31 % (22-44); MD NO; MEAN CORPUSCULAR HEMOGLOBIN 31.5 pg (27.5-34.5); MEAN CORPUSCULAR HGB CONC 33.7 g/dL (33.2-36.2); MEAN CORPUSCULAR VOLUME 93.5 fL (81-97); MEAN PLATELET VOLUME 7.4 fL (7.4-10.4); MONOCYTES # (AUTO) 0.49 x10^3/uL (0.2-0.8); MONOCYTES % (AUTO) 13 % (2-9); NEUTROPHILS # (AUTO) 1.75 x10^3/uL (1.8-6.8); NEUTROPHILS % (AUTO) 47 % (42-75); PLATELET COUNT 373 x10^3/uL (130-400); RED BLOOD COUNT 3.98 x10^6/uL (4.38-5.82)
[2019-08-17] MEDS ORDERED: WARFARIN 3 MG TABLET PO-COUM ONE (18:00)
[2019-08-17 20:13] VITALS: BP 127/80
[2019-08-18] MEDS: CEFTRIAXONE PMX 2GM/50ML 50 ML IV SCH (00:30)
[2019-08-18 00:33] VITALS: BP 104/64
[2019-08-18 05:07] LABS: INTERNATIONAL NORMALIZED RATIO 1.65 (0.93-1.1)
[2019-08-18] MEDS: SODIUM CHLORIDE NASAL SPRAY 45ML BOTTLE NAS SCH ×2 (05:55→10:51)
[2019-08-18 07:27] VITALS: BP 118/81
[2019-08-18] MEDS ORDERED: AMOXICILLIN/CLAV 875-125MG TABLET ONE (08:47)
[2019-08-18] MEDS: SENNA/DOCUSATE TABLET PO SCH (09:00)
[2019-08-18] MEDS ORDERED: AMOXICILLIN/CLAV 875-125MG TABLET PO SCH (09:30)
[2019-08-18] MEDS ORDERED: AMOX1TAB12 PO (09:43)
[2019-08-18] MEDS ORDERED: WARF4TAB PO (09:43)
[2019-08-18 10:38] VITALS: BP 120/81
[2019-08-18] MEDS ORDERED: WARFARIN 3 MG TABLET PO-COUM ONE (18:00)
[2019-08-20] MEDS ORDERED: AMOXICILLIN/CLAV 875-125MG TABLET PO SCH (09:00)
== END 2019-08-18 11:55 | disposition home or self-care (01) | DRG 853 ==
LOC: ED 15:15 → EDIP 19:39 → 3N 20:41 → CCU 07-29 14:20 → 4WST 08-03 11:03 → DCLOUNGE 08-18 11:48
PROVIDERS: ADMIT Internal Medicine; ATTEND Family Medicine
PROC: B01B1ZZ Fluoroscopy of Spinal Cord using Low Osmolar Contrast (ICD-10-PCS; 2019-07-26)
PROC: 009U3ZX Drainage of Spinal Canal, Percutaneous Approach, Diagnostic (ICD-10-PCS; 2019-07-26)
PROC: 099W0ZZ Drainage of Right Sphenoid Sinus, Open Approach (ICD-10-PCS; 2019-07-30)
PROC: 0NB Head and Facial Bones, Excision (ICD-10-PCS; 2019-07-30)
PROC: 0NB Head and Facial Bones, Excision (ICD-10-PCS; 2019-07-30)
PROC: 099R0ZZ Drainage of Left Maxillary Sinus, Open Approach (ICD-10-PCS; 2019-07-30)
PROC: 099Q0ZZ Drainage of Right Maxillary Sinus, Open Approach (ICD-10-PCS; 2019-07-30)
PROC: 09SM0ZZ Reposition Nasal Septum, Open Approach (ICD-10-PCS; 2019-07-30)
PROC: 8E09XBH Computer Assisted Procedure of Head and Neck Region, With Magnetic Resonance Imaging (ICD-10-PCS; 2019-07-30)
PROC: 099X0ZZ Drainage of Left Sphenoid Sinus, Open Approach (ICD-10-PCS; principal; 2019-07-30 18:00)
PROC: 02HV33Z Insertion of Infusion Device into Superior Vena Cava, Percutaneous Approach (ICD-10-PCS; 2019-08-12)
PROC: B5181ZA Fluoroscopy of Superior Vena Cava using Low Osmolar Contrast, Guidance (ICD-10-PCS; 2019-08-12)
PROC: B548ZZA Ultrasonography of Superior Vena Cava, Guidance (ICD-10-PCS; 2019-08-12)
DX: A40.8 Other streptococcal sepsis (principal); G00.2 Streptococcal meningitis; J86.9 Pyothorax without fistula; G08 Intracranial and intraspinal phlebitis and thrombophlebitis; G06.0 Intracranial abscess and granuloma; E23.0 Hypopituitarism; E23.2 Diabetes insipidus; I82.C12 Acute embolism and thrombosis of left internal jugular vein; F12.90 Cannabis use, unspecified, uncomplicated; H49.01 Third [oculomotor] nerve palsy, right eye; I80.9 Phlebitis and thrombophlebitis of unspecified site; J01.90 Acute sinusitis, unspecified; J32.2 Chronic ethmoidal sinusitis; J32.3 Chronic sphenoidal sinusitis; J34.2 Deviated nasal septum; R04.0 Epistaxis; R13.10 Dysphagia, unspecified; Z79.01 Long term (current) use of anticoagulants; Z86.72 Personal history of thrombophlebitis; J32.0 Chronic maxillary sinusitis
CPT/HCPCS: 36415; 36573; 36580; 62270; 70450; 70486; 70491; 70543; 70546; 70553; 71045; 77002; 80048; 80053; 80069; 80202; 81003; 82024; 82040; 82436; 82533; 82945; 83001; 83002; 83605; 83735; 83930; 83935; 84133; 84146; 84157; 84295; 84300; 84443; 85025; 85520; 85610; 85651; 85730; 86140; 87015; 87040; 87070; 87075; 87077; 87081; 87102; 87116; 87181; 87205; 87206; 87252; 87389; 87529; 88304; 88311; 89051; 93005; 93306; 96361; 96365; 96375; G0378; J0133; J0295; J0696; J1644; J1650; J1885; J2250; J2405; J2704; J3010; J3370; J3490; Q0162; A9575; C1751; J0330; J7030; J7050